=== PATIENT | female | born 1955 | race Caucasian/White ===

== ENCOUNTER → 2021-08-31 | Outpatient (CLI) | payer OTHER ==
[~2021-08-31] MED LIST: ANAS1TAB2; GLYCCAP PO; NOXI1TAB PO
--- NOTE | 2021-08-31 16:01 | RADONC.CN ---
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 She is s/p lumpectomy with Dr. Borjas on 06/15/21 margins were negative. She is referred by Dr. White, who has prescribed anastrozole, for consideration of adjuvant RT. Diagnosis/Treatment History Oncologic History 05/23/21 Screening mammogram ([facility]) showing indeterminate lesion in the right breast @ 2:00 05/29/21 Diagnostic mammogram 0.6 cm lesion @ 2:00, US and biopsy ([facility]) showing IDC grade 1 ER/IN+ HER2- 06/08/21 MRI breasts without additional lesions 06/15/21 Lumpectomy and [facility] ([facility]) pT1aN0(sn)M0 margins negative Breast history: (1 interrupted ) 1st @ 26 Menses @ 14 Menopausal OCP x 5 years No HRT No IVF Interval History Evon has no breast complaints today other than she is trying to massage the surgical site scar away. She intends to take anastrozole. She has no impaired ROM, numbness or swelling in the RUE. She has preserved appetite and energy levels. Weight is stable. Past Medical History: Unremarkable Past Surgical History: As above Family History: Mother colon, breast and lung cancers Social History: Never smoker Never drinker Allergies / Meds Allergies: Coded Allergies: No Known Allergies (Unverified , 08/31/21) Home Meds Reported Medications Vitamin D3/Folic Acid (Noxifol-D3 2,500 Unit-1 mg Tab) 2,500 Unit Tablet, 1 TAB PO, TAB 08/31/21 Vit B12/Folic Acid/B6/Aa No.15 (Glycotrol Capsule) 1 Each Capsule, 1 CAP PO DAILY for 30 Days, #30 CAP 08/31/21 Anastrozole (Anastrozole) 1 Mg Tablet 08/31/21 Review of Systems Constitutional: Denies: Fatigue Cardiovascular: Denies: Edema Breast: Denies: New Breast Lumps / Masses, Nipple Retraction, Nipple Discharge, Breast Skin Changes, Breast Pain or Tenderness Musculoskeletal: Denies: Arm pain Neurological: Denies: Weakness, Numbness Psych: Reports: Mood Normal Vital Signs Ht 63" Wt 154 lbs BMI 27.2 T 98.5 P 90 RR 18 BP 142/79 O2 99% Pain 0 Fatigue 0 General Exam: Alert, Cooperative, No Acute Distress Eye Exam: [facility] E[facility] EXAM: Atraumatic Neck Exam: Supple; Negative: Lymphadenopathy Chest Exam: Clear to auscultation Heart Exam: Rate Normal Breast Exam: Symmetric Bilaterally; Negative: Lumps or Masses (Palpable surgical site right superomedial breast), Nipple Retraction, Nipple Discharge, Skin Changes (Well-healed RUIQ incision) Abdomen Exam: Soft Extremity Exam: Negative: Edema Skin Exam: Nl turgor and temperature Neuro Exam: Normal Gait, Normal Speech, Cranial Nerves 3-12 NL Psych Exam: Mental status NL Diagnostic and Laboratory Diagnostic Review Radiologic images, relevant labs and pathology reports were personally reviewed and discussed with Ms. Bean. Assessment and Plan Impression Ms. 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 She is s/p lumpectomy with Dr. Borjas on 06/15/21 margins were negative. She is referred by Dr. White, who has prescribed anastrozole, for consideration of adjuvant RT. Stage Right upper inner breast cancer pT1aN0(sn)M0 IDC grade 1 ER/IN+ HER2- stage IA Performance Status ECOG 0 Plan We had an extensive discussion with Ms. Bean regarding the diagnosis at hand and available therapeutic options. She has healed well from surgery and had a small low-grade completely excised lesion. We discussed the results of CALGB 9343 and EORTC studies which suggest omission of RT in certain groups does not compromise BCSS. We also discussed NSABP-B21 which showed that adjuvant RT is the single strongest metal bumper of IBTR and thus forms an integral part of maximal therapy (RT+endocrine therapy) in breast-conservation approaches to early stage cancers. While omission of RT is the subject of ongoing study, omission of endocrine therapy is not, though the question certainly warrants consideration given the deleterious effects of endocrine treatment and the potentially marginal benefits thereof in patients of a certain age or low-baseline risk of recurrence who commit to ongoing mammographic follow up. If she were to desire RT, I would recommend APBI consisting of 5 fractions of treatment delivered with VMAT planning and daily CBCT for localization. We discussed the logistics of receiving radiation therapy in detail including the need for a 1-time planning session. This would precede the start of treatment by ~ 1 week. We discussed the side effects of APBI, fatigue, skin reaction, fibrosis, altered cosmesis, and second malignancy risk (<1%). With contemporary techniques there will be no exposure of the lung or heart to clinically meaningful radiation doses, especially true of the latter since this is a right sided process. After discussing the risks, benefits and alternatives to radiation therapy, Ms. Bean would like to consider the options of omission or adjuvant APBI prior to deciding. I encouraged her to reach out when she arrives at a decision. Both options are entirely reasonable in her situation. We instructed the patient that if there were any questions,concerns or changes in clinical status in the interim to contact us. Recommendations Consider omission of RT, versus APBI, both alternatives are reasonable Patient to alert us of her decision Billing Statement Total time of [46] minutes was spent preparing for the visit [1], obtaining HPI [8], examining the patient [4], reviewing diagnostic tests [3], discussing management options [20], coordinating care [0], and writing this note [10]. JORGE LEA MD Aug 31, 2021 16:01
== END ==
LOC: M ONCR 14:21
PROVIDERS: ATTEND General Practice
DX: C50.211 Malignant neoplasm of upper-inner quadrant of right female breast (principal)